=== PATIENT | female | born 1990 | race Caucasian/White ===

== ENCOUNTER 2023-09-09 19:30 | Emergency (ER) | payer BC, MEDICAID ==
[2023-09-09] MEDS ORDERED: Ketorolac Tromethamine 30 MG/ML VIAL ONE (20:08)
== END 2023-09-09 21:30 | disposition home or self-care (01) ==
LOC: CSHERS 19:30
DX: M79.652 Pain in left thigh (principal); F17.210 Nicotine dependence, cigarettes, uncomplicated
CPT/HCPCS: 96372; 99283; J1885